=== PATIENT | female | born 1985 | race Caucasian/White ===

== ENCOUNTER 2024-01-14 22:52 | Inpatient (IN) | payer MEDICAID ==
[2024-01-14] MEDS ORDERED: SODIUM CHLORIDE FLUSH 0.9% 10 ML SYRINGE IVP PRN (23:05)
[2024-01-14] MEDS ORDERED: METHYLERGONOVINE 0.2 MG/ML VIAL IM PRN (23:05)
[2024-01-14] MEDS ORDERED: hydrALAZINE INJ 20 MG/ML VIAL IVP PRN ×2 (23:05)
[2024-01-14] MEDS ORDERED: CARBOPROST TROMETHAMINE 250 MCG/ML VIAL IM PRN (23:05)
[2024-01-14] MEDS ORDERED: LABETALOL 20 MG/4 ML SYRINGE IVP PRN ×3 (23:05)
[2024-01-14] MEDS ORDERED: NIFEdipine 10 MG CAPSULE PO PRN (23:05)
[2024-01-14] MEDS ORDERED: OXYTOCIN 10 UNIT/ML VIAL IM PRN (23:05)
[2024-01-14] MEDS ORDERED: miSOPROStoL 200 MCG TABLET BC PRN (23:05)
[2024-01-14] MEDS ORDERED: lidocaine 1% 20 ML MDV ID PRN (23:05)
[2024-01-14] MEDS ORDERED: OXYTOCIN/SODIUM CHLORIDE 500 ML IV PRN (23:05)
[2024-01-14] MEDS ORDERED: TRANEXAMIC ACID IN NACL 1,000 MG/100 ML BAG IV PRN (23:05)
[2024-01-14] MEDS ORDERED: fentaNYL 100 MCG/2 ML VIAL IVP PRN (23:05)
[2024-01-14] MEDS ORDERED: TERBUTALINE 1 MG/ML VIAL SUBQ PRN (23:05)
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
[2024-01-14] MEDS ORDERED: SODIUM CHLORIDE FLUSH 0.9% 10 ML SYRINGE IVP SCH (23:45)
[2024-01-14] MEDS ORDERED: CALCIUM CARBONATE CHEW 500 MG TABLET PO PRN (23:49)
[2024-01-14] MEDS ORDERED: ONDANSETRON 4 MG/2 ML VIAL IVP PRN (23:50)
[2024-01-15 00:45] LABS: BASOPHILS % (AUTO) 0.4 %; EOSINOPHILS # (AUTO) 0.1 10^3/uL (0.0-0.7); EOSINOPHILS % (AUTO) 1.1 %; HCT - HEMATOCRIT 35.2 % (37.0-47.0); HGB - HEMOGLOBIN 12.1 g/dL (12.0-16.0); LYMPHOCYTES # (AUTO) 2.8 10^3/uL (1.5-3.5); LYMPHOCYTES % (AUTO) 25.4 %; MEAN CORPUSCULAR HEMOGLOBIN 31.7 pg (27.0-31.0); MEAN CORPUSCULAR HGB CONC 34.4 g/dL (32.0-36.0); MEAN CORPUSCULAR VOLUME 92.1 fL (81.0-99.0); MEAN PLATELET VOLUME 11.3 fL (7.9-10.8); MONOCYTES # (AUTO) 0.8 10^3/uL (0.0-1.0); MONOCYTES % (AUTO) 6.9 %; NEUTROPHILS # (AUTO) 7.3 10^3/uL (1.5-6.6); NEUTROPHILS % (AUTO) 65.3 %; PLT - PLATELET COUNT 198 10^3/uL (130-450); RED BLOOD COUNT 3.82 10^6/uL (4.20-5.40); RED CELL DISTRIBUTION WIDTH 13.5 % (12.0-15.0); WHITE BLOOD COUNT 11.2 x10^3/uL (4.8-10.8)
[2024-01-15] MEDS: LACTATED RINGERS 1,000 ML IV PRN (00:52)
[2024-01-15] MEDS: OXYTOCIN/SODIUM CHLORIDE 500 ML IV SCH (01:20)
--- NOTE | 2024-01-15 06:54 | PROVIDER PROGRESS NOTE ---
Labor Progress Note - Uterine Monitoring Contraction Frequency (min/apart): 2-3 Contraction Intensity: positive: Moderate to strong, Strong Uterine Resting Tone: positive: Soft - Monitoring Monitor Mode: positive: External ultrasound Heart Rate Baseline: 135 Heart Rate Variability: positive: Moderate (6-25 bmp) Accelerations: positive: Present, 15x15, Absent Decelerations: positive: None - Vaginal Exam Dilation (in cm): 4 Effacement (%): 80 Station: -1 Cervical Position: Posterior - Labor Progress Note Labor Progress Note/Additional Text: Pitocin was started at 2am. Holly was able to get some rest while pitocin was slowly increased. Sudden onset of strong contractions at 8mu/min of pitocin. Continuous labor support was provided and pitocin was decreased to 7 and then 4mu/min for frequent, strong contractions. Holly reported feeling a lot of pressure and CE was performed and reassurance given. Holly indicated interest in the tub and it was filled and she was assisted into the tub with minimal relief, now requesting an epidural. Epidural process initiated. VS: BP 91/51, HR 86, T 37.0C A:Term multipara Active labor SROM x 15 hours without sx of infection Cat I FHR P: Epidural now Continue pitocin titration to adequate contraction pattern. Reassess in 4 hours or sooner, PRN.
[2024-01-15] MEDS: LACTATED RINGERS 1,000 ML IV SCH (07:00)
[2024-01-15] MEDS ORDERED: ROPIVACAINE 0.2% 200 MG/100 ML BAG EP ONE (07:03)
[2024-01-15] MEDS ORDERED: LIDOCAINE 2%-EPI 1:100000 20 ML MDV ONE (07:03)
[2024-01-15] MEDS ORDERED: fentaNYL 100 MCG/2 ML VIAL ONE (07:10)
[2024-01-15] MEDS ORDERED: ROPIVACAINE 0.2% 200 MG/100 ML BAG EP PRN (08:14)
[2024-01-15] MEDS ORDERED: NALOXONE 0.4 MG/ML VIAL IVP PRN (08:14)
[2024-01-15] MEDS ORDERED: ePHEDrine 50 MG/ML VIAL IVP PRN (08:14)
--- NOTE | 2024-01-15 08:17 | ANESTHESIA ---
Pre-Anesthesia VS, & Labs - Diagnosis active labor - Procedure vaginal delivery Vital Signs: Temp Pulse Resp BP Pulse Ox O2 Flow Rate 98.2 C H 109 H 18 122/67 01/14/24 23:29 01/14/24 23:29 01/14/24 23:29 01/14/24 23:29 Height: 5 ft 5 in Weight (kg): 97.522 kg Body Mass Index: 35.7 BMI Classification: Obese - NPO Other (clear liquids during labor) - Is Patient ?: Yes - Lab Results Current Lab Results: Laboratory Tests 01/15/24 00:47: Blood Type Recheck O NEGATIVE 01/15/24 00:03: WBC 11.2 H, RBC 3.82 L, Hgb 12.1, Hct 35.2 L, MCV 92.1, MCH 31.7 H, MCHC 34.4, RDW 13.5, Plt Count 198, MPV 11.3 H, Neut # (Auto) 7.3 H, Lymph # (Auto) 2.8, Toole # (Auto) 0.8, Eos # (Auto) 0.1, Baso # (Auto) 0.0, Absolute Nucleated RBC 0.00, Nucleated RBC % 0.0 01/15/24 00:03: Blood Type O NEGATIVE, Antibody Screen NEGATIVE Lab results reviewed: Yes Fish Bones: 01/15/24 00:03 Home Medications and Allergies Home Medications: Ambulatory Orders Albuterol Sulf [Ventolin Hfa Inhaler] 01/14/24 Fluoxetine HCl [Prozac] 20 mg PO 01/14/24 Active Medications Calcium Carbonate/Glycine (Calcium Carbonate Chew 500 Mg Tablet) 500 mg PO BID PRN PRN Reason: Heartburn Carboprost Tromethamine (Carboprost Tromethamine 250 Mcg/Ml Vial) 250 mcg IM .ONCE PRN PRN Reason: Hemorrhage Fentanyl (Fentanyl 100 Mcg/2 Ml Vial) 50 mcg IVP Q1H PRN PRN Reason: Severe Pain (score 7-10) Hydralazine HCl (Hydralazine Inj 20 Mg/Ml Vial) 5 - 10 mg IVP Q20M PRN; Protocol PRN Reason: SBP> or= 160 OR DBP> or= 110 Hydralazine HCl (Hydralazine Inj 20 Mg/Ml Vial) 10 mg IVP .ONCE PRN; Protocol PRN Reason: SBP> or= 160 OR DBP> or= 110 Lactated Ringer's (Lr) 500 mls @ 999 mls/hr IV PRN PRN PRN Reason: epidural or NRFHTs Last Infusion: 01/15/24 07:31 Dose: Infused Oxytocin/Sodium Chloride (Pitocin/Sodium Chloride) 500 mls @ 999 mls/hr IV PRN PRN; Protocol PRN Reason: POST- HEMORR PREVENTION Tranexamic Acid (Tranexamic 1,000 Mg/100ml-Nacl) 1,000 mg in 100 mls @ 600 mls/hr IV Q30M PRN PRN Reason: EBL >1200mL and within 3hr Oxytocin/Sodium Chloride (Pitocin/Sodium Chloride) 500 mls @ 1 mls/hr IV TITR ELKIN; Protocol Last Titration: 01/15/24 06:25 Dose: 4 milliunit/min, 4 mls/hr Lactated Ringer's (Lr) 1,000 mls @ 125 mls/hr IV .Q8H ELKIN Labetalol HCl (Labetalol 20 Mg/4 Ml Syringe) 20 - 80 mg IVP Q10M PRN; Protocol PRN Reason: SBP> or= 160 OR DBP> or= 110 Labetalol HCl (Labetalol 20 Mg/4 Ml Syringe) 20 mg IVP .ONCE PRN; Protocol PRN Reason: SBP> or= 160 OR DBP> or= 110 Labetalol HCl (Labetalol 20 Mg/4 Ml Syringe) 20 - 40 mg IVP Q10M PRN; Protocol PRN Reason: SBP> or= 160 OR DBP> or= 110 Lidocaine HCl (Lidocaine 1% 20 Ml Mdv) 20 ml ID .ONCE PRN PRN Reason: PERINEAL REPAIR Stop: 01/17/24 23:07 Methylergonovine Maleate (Methylergonovine 0.2 Mg/Ml Vial) 0.2 mg IM .ONCE PRN PRN Reason: Hemorrhage Misoprostol (Misoprostol 200 Mcg Tablet) 400 mcg BC .ONCE PRN PRN Reason: Hemorrhage Nifedipine (Nifedipine 10 Mg Capsule) 10 - 20 mg PO Q20M PRN; Protocol PRN Reason: SBP> or= 160 OR DBP> or= 110 Ondansetron HCl (Ondansetron 4 Mg/2 Ml Vial) 4 mg IVP Q4HR PRN PRN Reason: Nausea / Vomiting Oxytocin (Oxytocin 10 Unit/Ml Vial) 10 unit IM .ONCE PRN PRN Reason: Step One if no IV access. Sodium Chloride (Sodium Chloride Flush 0.9% 10 Ml Syringe) 10 ml IVP PRN PRN PRN Reason: NEEDED PER PROVIDER ORDERS Sodium Chloride (Sodium Chloride Flush 0.9% 10 Ml Syringe) 10 ml IVP Q8H ELKIN Terbutaline Sulfate (Terbutaline 1 Mg/Ml Vial) 0.25 mg SUBQ .ONCE PRN PRN Reason: Tachystole Albuterol Sulf [Ventolin Hfa Inhaler] 01/14/24 Fluoxetine HCl [Prozac] 20 mg PO 01/14/24 Allergies/Adverse Reactions: Allergies Allergy/AdvReac Type Severity Reaction Status Date / Time No Known Drug Allergies Allergy Verified 01/14/24 23:30 Anes History & Medical History - Anesthetic History Anesthesia Complications: reports: No previous complications - Medical History Cardiovascular: reports: None Pulmonary: reports: None Gastrointestinal: reports: None Urinary: reports: None Neuro: reports: Migraines Musculoskeletal: reports: None Endocrine/Autoimmune: reports: None Blood Disorders: reports: None Skin: reports: None Smoking Status: Never smoker Psychosocial: reports: Anxiety History of Cancer?: No - Obstetrical History : 6 Parity: 3 Events: reports: Other (AMA) Complications: reports: None Exam General: Alert, Oriented x3, Cooperative, Moderate distress Dental: WNL Mouth Openin Fingerbreadth Neck Mobility: Normal Mallampati classification: III Thyromental Distance: less than 4 cm Mental/Cognitive Status: Alert/Oriented X3, Normal for patient Plan Anesthesia Type: Epidural Consent for Procedure(s) Verified and Reviewed: Yes Code Status: Attempt Resuscitation ASA classification: 2-Mild systemic disease Is this case an emergency?: No
--- NOTE | 2024-01-15 08:26 | DELIVERY NOTE ---
Delivery Note - Labor Labor: positive: Augmented by oxytocin - Delivery Method Delivery Method: positive: Spontaneous vaginal delivery - Presentation Presentation: positive: Vertex, LOVE - right occiput anterior - Nuchal Cord Nuchal Cord: positive: None (True knot x1) - Anesthetic Anesthetic Type: Anesthetic: positive: Other (see anesthesia documentation) - Amniotic Fluid Description Amniotic Fluid Description: positive: Clear (SROM x 16 hours) - Episiotomy Type Episiotomy Type: positive: None - Laceration Laceration: positive: None - Delivery Outcome Delivery Outcome: positive: Livebirth - [place] : positive: Placed in direct skin contact with mother, Stimulated, Warmed [place] sex: positive: Male - Cord Cord: positive: 3 vessels, True knot - Placenta Placenta: positive: Intact, Spontaneous (Yenni) - Estimated Blood Loss Estimated Blood Loss (in cc): 100 - Post Delivery Events Post Delivery Events: positive: No post delivery events - Delivery Comments (Free Text/Narrative) Delivery Comments (Free Text/Narrative): Holly progressed rapidly with pitocin at 4mu/min. While sitting up for epidural placement she reported increasing rectal pressure. Adequate pain relief achieved after multiple epidural attempts, see anesthesia documentation. Immediately after RUBY placement, CE C/C/+1. Cat I FHR throughout labor, max pitocin dose 8mu/min, total ROM 16 hours, no sx of infection in labor, no antibiotics indicated. Three minute second stage in semi-Rudd's position led to NSVB of a viable baby boy in LOVE position. There was no nuchal cord and the shoulders delivered easily, without additional maneuvers. [place] was placed on maternal chest for drying, stimulation and skin to skin with notably long cord with a single true knot. Apgars 8/9 at 1 and 5 minutes respectively. Remaining 30 units of pitocin in 500mL LR was increased to 250mL/hr for active management of the third stage of labor. After cessation of pulsation, the cord was double clamped by CNM and cut by FOB. Cord blood sample was collected. Gentle cord traction and a single maternal push led to spontaneous, Schultze delivery of an apparently intact placenta, membranes and 3VC. Fundus immediately firm and bleeding scant. Vagina and perineum inspected and intact. QBL 100mL. Both mother and baby stable and skin to skin as I left the room. Anticipate d/c to home in 24 hours.
[2024-01-15] MEDS: KETOROLAC 30 MG/ML VIAL IVP SCH (09:05)
[2024-01-15] MEDS: IBUPROFEN 600 MG TABLET PO SCH (16:12)
[2024-01-15] MEDS: DOCUSATE SODIUM 100 MG CAPSULE PO SCH (21:34)
[2024-01-15] MEDS: ACETAMINOPHEN 325 MG TABLET PO PRN (21:34)
[2024-01-16 04:51] VITALS: O2SAT 97
--- NOTE | 2024-01-16 07:26 | Discharge Plan ---
Discharge Plan Problem Reviewed?: Yes Disposition: 01 Home, Self Care Condition: Good Diet: Regular Activity Restrictions: bed rest x 2 weeks (Pelvic rest x 6 weeks) Shower Restrictions: No Driving Restrictions: Yes (for 2 weeks) Weight Bearing: Full Weight Instruction Topics: Vaginal After Health Concerns: routine recovery Assessment: Term NSVB, no complications, no lacerations No Smoking: If you smoke, Please STOP! Call for help. Follow-up with: Georgie Reeves DNP [Primary Care Provider] - (Follow-up phone call in 2 weeks, scheduled and in your email. 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 She is voiding, ambulating and independently, tolerating a geenral diet and feeding her baby confidently. She is eager for discharge to home today. Vaginal bleeding is light, without clots. Pain controlled w/ PO med) Post Objective - Patient Data Reviewed Vital Signs: Yes Vital Signs: Vital Signs x48h Temp Pulse Resp BP Pulse Ox 01/16/24 06:45 36.5 C 01/16/24 06:21 37.2 C 01/16/24 04:42 36.2 C L 101 H 18 98/52 L 97 01/16/24 00:27 36.5 C 93 18 104/50 L 98 Weight: Weight 01/14/24 01/15/24 01/16/24 23:59 23:59 23:59 Weight (kg) 97.522 kg 97.522 kg Intake & Output: Intake and Output Totals x24h 01/14/24 01/15/24 01/16/24 23:59 23:59 23:59 Intake Total 2000.000 1200 Output Total 600 Balance 7422.492 [id number] - Current Medications Current Medications: Current Medications Generic Name Dose Route Start Last Admin Trade Name Freq PRN Reason Stop Dose Admin Acetaminophen 650 mg 01/15/24 08:31 01/15/24 21:34 Acetaminophen 325 Mg Tablet PO 650 mg Q4HR PRN Administration Pain or Fever > 38C (100.4F) Docusate Sodium 100 mg 01/15/24 21:25 01/15/24 21:34 Docusate Sodium 100 Mg Capsule PO 100 mg DAILY ELKIN Administration Lactated Ringer's 500 mls @ 999 mls/hr 01/14/24 23:05 01/15/24 07:31 Lr IV Infused PRN PRN Infusion epidural or NRFHTs Lactated Ringer's 1,000 mls @ 125 mls/hr 01/15/24 06:00 01/15/24 11:48 Lr IV Infused .Q8H ELKIN Infusion Ibuprofen 600 mg 01/15/24 15:00 01/16/24 05:53 Ibuprofen 600 Mg Tablet PO 600 mg Q6HR ELKIN Administration - Physical Exam Fundus Description: positive: Firm General Appearance: positive: No acute distress Eyes Bilateral: positive: Normal inspection Respiratory: positive: No respiratory distress Cardiovascular: positive: Regular rate & rhythm Abdomen: positive: Tenderness (appropriate at for PPD1) - Lab Results Lab Results: 01/15/24 00:03
--- NOTE | 2024-01-16 07:40 | DISCHARGE SUMMARY ---
Discharge Summary Admit Date: 01/14/24 Discharge Date: 01/16/24 Discharging Provider: Ross Primary Care Provider: Ross Condition at Discharge: Good Discharge Disposition: 01 Home, Self Care - DIAGNOSES Admission Diagnoses: Term Prom (Routine labor admission) Discharge Diagnoses with Status of Each Condition: NSVB (O80) - HPI History of Present Illness: PPD1: Holly is sitting up in bed with her son lying between her legs. She is voiding, ambulating and independently, tolerating a general diet and feeding her baby confidently. She is eager for discharge to home today. Vaginal bleeding is light, without clots. Pain: low back, cramping and general full body muscle aches-> controlled w/ PO meds. Tolerating a general diet. Supportive partner at bedside. Planning ferry home this afternoon. - HOSPITAL COURSE Hospital Course: Routine PP hospital course - ALLERGIES Allergies/Adverse Reactions: Allergies Allergy/AdvReac Type Severity Reaction Status Date / Time No Known Drug Allergies Allergy Verified 01/14/24 23:30 - MEDICATIONS Home Medications: Ambulatory Orders Medication Instructions Recorded Confirmed Fluoxetine HCl [Prozac] 20 mg PO DAILY 01/14/24 01/15/24 - PHYSICAL EXAM AT DISCHARGE General Appearance: positive: No acute distress Eyes Bilateral: positive: Normal inspection Respiratory: positive: No respiratory distress Cardiovascular: positive: Regular rate & rhythm Abdomen: positive: Tenderness (appropriate for PPD1) - LABS Result Diagrams: 01/15/24 00:03 - SEPSIS Current Stage of Sepsis: Ruled out - QUALITY (Female Hip Fx Only) Was patient sent home on osteoporosis medication?: No - FOLLOW UP Follow Up: 2 week snad 6 week PP appointment scheduled and emailed confirmation to Holly - TIME SPENT Time Spent in Discharge (Minutes): 20
[2024-01-16 12:51] VITALS: BP 103/48
--- NOTE | 2024-01-16 19:10 | Labor Flowsheet ---
Labor Flowsheet Datetime Report Generated by CPN: 01/16/2024 19:10 Datetime: 01/16/2024 04:31 VITAL SIGNS NBP Sys/Kristie/Mean (mmHg): 98 : 52 : 64 Pulse: 103 Datetime: 01/16/2024 00:20 SpO2 (%): 98 Datetime: 01/15/2024 15:17 Respirations: 14 Temperature (C): 36.9 Temperature Route: Oral Datetime: 01/15/2024 12:56 Stage of : Recovery Datetime: 01/15/2024 11:30 Hygiene: Idalia Care; Shower; Underpad Changed; Peripad Changed; Gown Changed; Linens Changed Datetime: 01/15/2024 09:58 Membranes Ruptured Date/Time: 01/14/2024 16:30 Membranes Rupture Method: Spontaneous Amniotic Fluid Color: Clear Amniotic Fluid Amount: Moderate Amniotic Fluid Odor: Normal Datetime: 01/15/2024 09:15 PAIN Pain Scale: 0 Datetime: 01/15/2024 08:10 LaborFlag: Labor Datetime: 01/15/2024 07:46 Patient Position/Activity: Semi-Fowlers Provider Reviewed Strip: Yes STAGE 2 Pushing: Urge to Push Pushing Position: Pushing with Contractions Pushing Progress: Descent with Pushing; with Pushing Datetime: 01/15/2024 07:45 UTERINE ACTIVITY Monitor Mode: Palpation Frequency (min): 2-3 Quality: Strong Duration (sec): 60-90 Pattern: Normal: <= 5 Contractions in 10 Minutes Resting Tone (Palpate): Relaxed Contraction Comments: Provider at bedside ASSESSMENT A Monitor Mode: External US Monitor Interventions for FHR: Ultrasound Adjusted FHR Baseline Rate : 110 Variability: Moderate 6-25 bpm Accelerations: 15X15 Decelerations: Early Comments: provider at bedside Datetime: 01/15/2024 07:30 Monitor Interventions for UA: [place] Adjusted Pitocin Checklist: At Least 1 Acceleration of 15 bpm x 15 Seconds in 30 Minutes or Adequate Variabi lity; No More than 1 Late Deceleration Occurred in Past 30 Minutes; No More than 2 Variable Decelerat ions > 60 Seconds in Duration and decreasing >60 bpm in 30 minutes; No More than 5 Uterine Contractio ns in 10 Minutes for any 20 Minute Interval; Uterus Palpates Soft between Contractions Datetime: 01/15/2024 07:05 ANESTHESIA Anesthesia Comments: anesthesia at bedside Datetime: 01/15/2024 07:00 FHR Baseline Changes: No Baseline Change Category: Category I Datetime: 01/15/2024 06:36 Patient Care Comments: pt in tub Datetime: 01/15/2024 06:30 PATIENT CARE Oxygen Method: Room Air Datetime: 01/15/2024 06:28 VAGINAL EXAM Dilatation (cm): 4.0 Effacement (%): 80 Station: -1 Exam by: Georgie Motellano Datetime: 01/15/2024 06:25 MEDICATIONS Pitocin (milliunits): Decreased to @ 4 Medication Comments: decreased per provider Datetime: 01/15/2024 05:23 COMMUNICATION Communication Comments: pt up to BR
== END 2024-01-16 14:00 | disposition home or self-care (01) | DRG 807 ==
LOC: WFO 22:52 → FBP 22:55 → WFO 23:06 → FBP 23:07
PROVIDERS: ADMIT Nurse Practitioner Obstetrics & Gynecology; ATTEND Nurse Practitioner Obstetrics & Gynecology
PROC: 10E0XZZ Delivery of Products of Conception, External Approach (ICD-10-PCS; principal; 2024-01-15)
DX: O42.02 Full-term premature rupture of membranes, onset of labor within 24 hours of rupture (principal); Z37.0 Single live birth; Z3A.38 38 weeks gestation of pregnancy; O69.2XX0 Labor and delivery complicated by other cord entanglement, with compression, not applicable or unspecified
CPT/HCPCS: 59409; 85025; 86850; 86900; 86901; A9270; J7120